=== PATIENT | female | born 1950 | race Caucasian/White ===

== ENCOUNTER 2020-06-17 20:19 | Emergency (ER) | payer MEDICARE ==
[~2020-06-17] VITALS: Ht 167.6 cm; Wt 100.0 kg
--- NOTE | 2020-06-17 20:37 | NUR ---
PT. BIB EMS FROM HOME FOR REPORTS OF WITNESSED SEZIURE WITH TONIC CLONIC ACTIVITY LASTING 30 ACCORDING TO FAMILY. PT. HAS NO HX OF SAME. PT. A&O X 1 ON ARRIVAL AND APPEARS SOMEWHAT POST-ICTAL. PER EMS FAMILY REPORTS PATIENT WITH POSSIBLE DEMENTIA; UNKNOWN BASELINE. PT. ANDERSON X 4 EQUALLY. FOLLOWS ALL COMMANDS APPROPRIATELY. EKG DONE IMMEDIATLY UPON ARRIVAL AND PRESENTED TO ERP. CONTINUOUS PULSE OX, B/P, AND HEART MONITORS APPLIED. PVC'S NOTED, OTHERWISE NSR. CALL LIGHT IN REACH. EXPLANIED USE TO PT. ALL SAFETY MEASURES OBSERVED. IV EN ROUTE WITH ABOUT 100ML NS INFUSED.
[2020-06-17] MEDS ORDERED: LOSA25TA25 PO (20:42)
[2020-06-17] MEDS ORDERED: LORazepam 2 MG/ML, 1ML IVPush ONE (21:00)
[2020-06-17] MEDS ORDERED: PLEASE ENTER ALLERGIES MC SCH (21:30)
[2020-06-17] MEDS ORDERED: LORazepam 2 MG/ML, 1ML ONE (21:40)
[2020-06-17 21:53] LABS: BASOPHILS % (AUTO) 0 % (0-1); EOSINOPHILS % (AUTO) 1 % (1-7); LYMPHOCYTES % (AUTO) 11 % (22-44); MEAN CORPUSCULAR HEMOGLOBIN 29.8 pg (27.0-34.8); MEAN CORPUSCULAR HGB CONC 33.4 g/dL (32.4-35.8); MEAN PLATELET VOLUME 8.3 fL (7.4-10.4); MONOCYTES % (AUTO) 6 % (2-9); NEUTROPHILS % (AUTO) 83 % (42-75); PLATELET COUNT 197 x10^3/uL (130-400); RED BLOOD COUNT 4.83 x10^6/uL (3.82-5.3)
--- NOTE | 2020-06-17 21:54 | NUR ---
Assist RN: Patient returned from CT. Eval mentation; patient AAOx1 to self. Patient awake and alert, sitting upright calmly with no complaints.
[2020-06-17 22:01] LABS: MD NO
[2020-06-17 22:05] LABS: ALANINE AMINOTRANSFERASE 31 U/L (12-78); ALBUMIN 3.6 g/dL (3.4-5.0); ANION GAP 7 mmol/L (5-15); CALCIUM 8.9 mg/dL (8.5-10.1); CHLORIDE 108 mmol/L (98-107); CREATININE 0.74 mg/dL (0.55-1.02)
[2020-06-17 22:11] LABS: ALKALINE PHOSPHATASE 123 U/L (45-117); BILIRUBIN,TOTAL 0.3 mg/dL (0.2-1.0); TOTAL PROTEIN 7.9 g/dL (6.4-8.2)
--- NOTE | 2020-06-17 22:22 | NUR ---
Patient's at bedside. States patient has a hx of dementia. Per , they were about to eat dinner when patient suddenly experienced a seizure. Patient has no hx of seizures. provided dry clothing. Assisted with changing patient. Patient follows commands appropriately.
--- NOTE | 2020-06-17 22:53 | NUR ---
RECEIVED REPORT BACK FROM JHOAN OCONNOR TO REASSUME CARE OF PT. AT THIS TIME.
--- NOTE | 2020-06-17 23:05 | NUR ---
MARICARMEN PETERS IN TO DISCUSS ED FINDINGS AND POC WITH PT. AND AT BS.
--- NOTE | 2020-06-17 23:12 | NUR ---
CLEAN CATCH UA COLLECTED AND SENT TO LAB.
[2020-06-17 23:23] LABS: MICROSCOPIC AUTO
[2020-06-17 23:32] LABS: AMPHETAMINE SCREEN, URINE Negative (Negative); BARBITURATE SCREEN, URINE Negative (Negative); BENZODIAZEPINE SCREEN, URINE Negative (Negative); CANNABINOID SCREEN, URINE Negative (Negative); COCAINE SCREEN, URINE Negative (Negative); METHADONE SCREEN, URINE Negative (Negative); OPIATE SCREEN, URINE Negative (Negative)
[2020-06-17] MEDS ORDERED: CEFDINIR 300 MG CAPSULE ONE (23:54)
[2020-06-18] MEDS ORDERED: CEFDINIR 300 MG CAPSULE PO ONE
[2020-06-18 00:19] VITALS: BP 144/104
== END 2020-06-18 00:20 | disposition home or self-care (01) ==
LOC: ED 06-18
DX: R56.9 Unspecified convulsions (principal); G30.0 Alzheimer's disease with early onset; F02.80 Dementia in other diseases classified elsewhere, unspecified severity, without behavioral disturbance, psychotic disturbance, mood disturbance, and anxiety; R00.0 Tachycardia, unspecified; N39.0 Urinary tract infection, site not specified; I10 Essential (primary) hypertension
CPT/HCPCS: 36415; 70450; 80053; 80307; 80320; 81001; 83735; 85025; 87086; 93005; 96374; 99285; J2060; G0480